=== PATIENT | male | born 1950 | race Caucasian/White ===

== ENCOUNTER 2020-10-30 21:22 | Emergency (ER) | payer MEDICARE ==
[~2020-10-30 21:22] MED LIST: ALLOPURINOL100 MG PO; ANTIVERT/2525 M1 PO; CRESTOR5 MG PO; LISINOPRIL10 MG PO; LISINOPRIL20 MG PO
[2020-10-30 22:02] LABS: BASO % 0.4 % (0.0-1.0); EOS # 0.2 10*3/uL (0.0-0.4); EOS % 2.7 % (1.0-4.0); HEMATOCRIT 46.3 % (42.0-52.0); LYMPH # 0.4 10*3/uL (1.3-4.4); LYMPH % 5.8 % (27.0-41.0); MEAN CELL VOLUME 89.7 fl (80.0-94.0); MEAN CORPUSCULAR HGB CONC 34.6 g/dl (33.0-37.0); MEAN PLATELET VOLUME 10.7 fl (9.6-12.3); MONO # 0.3 10*3/uL (0.1-1.0); MONO % 4.1 % (3.0-9.0); NEUT # 6.3 10*3/uL (2.3-7.9); NEUT % 85.6 % (47.0-73.0); PLATELET COUNT AUTOMATED 194 10*3/uL (130-400); RED BLOOD COUNT 5.16 10*6/uL (4.50-5.90); RED CELL DISTRI WIDTH 13.3 % (0-14.5); WHITE BLOOD COUNT 7.4 10*3/uL (4.8-10.8)
[2020-10-30 22:21] LABS: ALBUMIN 3.7 gm/dl (3.1-4.5); ALKALINE PHOSPHATASE 69 U/L (45-117); BUN 14 mg/dl (7-24); CHLORIDE 107 mmol/L (98-107); CREATININE 1.07 mg/dL (0.70-1.30); POTASSIUM 4.1 mmol/L (3.5-5.1); SGOT/AST 51 IU/L (3-35); SGPT/ALT 77 U/L (12-78); SODIUM 139 mmol/L (136-145); TOTAL PROTEIN 7.2 gm/dL (6.4-8.2)
[2020-10-30 22:22] LABS: TROPONIN I < 0.015 ng/ml (<0.045)
== END 2020-10-30 23:41 | disposition home or self-care (01) ==
LOC: ED 21:22
PROVIDERS: Physician Assistant
DX: B34.9 Viral infection, unspecified (principal); Z20.822 Contact with and (suspected) exposure to COVID-19; Z98.890 Other specified postprocedural states; Z79.899 Other long term (current) drug therapy

== ENCOUNTER 2022-03-19 15:10 | Emergency (ER) | payer MEDICARE ==
[~2022-03-19] VITALS: Wt 95.3 kg
[2022-03-19] MEDS ORDERED: MEDROL DOSEPAK4 MG PO (17:05)
[2022-03-19] MEDS ORDERED: NAPROSYN500 MG PO (17:05)
== END 2022-03-19 17:09 | disposition home or self-care (01) ==
LOC: ED 15:10
DX: M25.561 Pain in right knee (principal); Z79.899 Other long term (current) drug therapy; Z98.890 Other specified postprocedural states

== ENCOUNTER 2024-05-05 09:22 | Emergency (ER) | payer OTHER ==
[~2024-05-05] VITALS: Ht 175.2 cm; Wt 90.7 kg
[~2024-05-05 09:22] MED LIST changes: +MEDROL DOSEPAK4 MG PO; +NAPROSYN500 MG PO
[2024-05-05] MEDS ORDERED: LISINOPRIL-HCT1 EACH PO (09:55)
[2024-05-05 10:18] LABS: BILIRUBIN Negative (Negative); BLOOD Negative (Negative); CLARITY Clear (Clear); COLOR Yellow (Yellow); GLUCOSE Negative (Negative); KETONE Negative (Negative); LEUKO ESTERASE Negative (Negative); NITRITE Negative (Negative); UROBILINOGEN 0.2 E.U./dl (0.0-1.0)
[2024-05-05 10:35] LABS: BACTERIA 1+; CALCIUM OXALATE CRYSTALS Trace
[2024-05-05] MEDS ORDERED: FLOMAX0.4 MG PO (10:49)
== END 2024-05-05 10:52 | disposition home or self-care (01) ==
LOC: ED 09:22
PROVIDERS: Emergency Medicine
DX: R30.0 Dysuria (principal); N40.0 Benign prostatic hyperplasia without lower urinary tract symptoms; I10 Essential (primary) hypertension; Z98.890 Other specified postprocedural states; K21.9 Gastro-esophageal reflux disease without esophagitis; E78.00 Pure hypercholesterolemia, unspecified; M10.9 Gout, unspecified

== ENCOUNTER 2024-06-19 16:10 | Emergency (ER) | payer OTHER ==
[~2024-06-19] VITALS: Ht 175.2 cm; Wt 108.4 kg
[~2024-06-19 16:10] MED LIST changes: +FLOMAX0.4 MG PO; +LISINOPRIL-HCT1 EACH PO
[2024-06-19 16:37] LABS: BASO % 0.6 % (0.0-1.0); EOS # 0.1 10*3/uL (0.0-0.4); EOS % 2.6 % (1.0-4.0); HEMATOCRIT 49.3 % (42.0-52.0); MEAN CELL VOLUME 87.9 fl (80.0-94.0); MEAN CORPUSCULAR HGB 30.1 pg (27.0-31.0); MEAN CORPUSCULAR HGB CONC 34.3 g/dl (33.0-37.0); MEAN PLATELET VOLUME 10.4 fl (9.6-12.3); MONO # 0.5 10*3/uL (0.1-1.0); MONO % 8.4 % (3.0-9.0); NEUT # 3.4 10*3/uL (2.3-7.9); NEUT % 64.6 % (47.0-73.0); PLATELET COUNT AUTOMATED 231 10*3/uL (130-400); RED BLOOD COUNT 5.61 10*6/uL (4.50-5.90); WHITE BLOOD COUNT 5.3 10*3/uL (4.8-10.8)
[2024-06-19 16:59] LABS: BUN 16 mg/dl (9-23); CHLORIDE 102 mmol/L (98-107); POTASSIUM 4.2 mmol/L (3.4-5.1)
[2024-06-19 18:03] LABS: BILIRUBIN Negative (Negative); BLOOD Negative (Negative); CLARITY Clear (Clear); COLOR Yellow (Yellow); GLUCOSE Negative (Negative); KETONE Negative (Negative); LEUKO ESTERASE 1+ (Negative); NITRITE Negative (Negative); UROBILINOGEN 0.2 E.U./dl (0.0-1.0)
[2024-06-19 18:10] LABS: BACTERIA 1+; MUCOUS 1+; RBC 0-2 rbc/hpf (0-2); WBC 21-30 wbc/hpf (0-5)
[2024-06-19] MEDS ORDERED: CIPRO500 MG PO (18:15)
[2024-06-19] MEDS ORDERED: Ciprofloxacin Hydrochloride 500 MG TAB PO ONE (18:20)
== END 2024-06-19 18:44 | disposition home or self-care (01) ==
LOC: ED 16:10
PROVIDERS: Nurse Practitioner Family
DX: R33.9 Retention of urine, unspecified (principal); N39.0 Urinary tract infection, site not specified; E78.5 Hyperlipidemia, unspecified; I10 Essential (primary) hypertension; K21.9 Gastro-esophageal reflux disease without esophagitis; E78.00 Pure hypercholesterolemia, unspecified; M10.9 Gout, unspecified; E66.9 Obesity, unspecified; Z68.30 Body mass index [BMI] 30.0-30.9, adult; Z98.890 Other specified postprocedural states

== ENCOUNTER 2024-06-21 09:31 | Emergency (ER) | payer MEDICARE ==
[~2024-06-21] VITALS: Wt 108.4 kg
[~2024-06-21 09:31] MED LIST changes: +CIPRO500 MG PO
== END 2024-06-21 10:10 | disposition home or self-care (01) ==
LOC: ED 09:31
DX: Z46.6 Encounter for fitting and adjustment of urinary device (principal); I10 Essential (primary) hypertension; K21.9 Gastro-esophageal reflux disease without esophagitis; E78.00 Pure hypercholesterolemia, unspecified; M10.9 Gout, unspecified; Z98.890 Other specified postprocedural states

== ENCOUNTER 2025-01-22 12:01 | Emergency (ER) | payer MEDICARE ==
[~2025-01-22] VITALS: Ht 172.7 cm; Wt 99.8 kg
[2025-01-22] MEDS ORDERED: SODIUM CHLORIDE 0.9% 500 ML IV ONE (13:05)
[2025-01-22 13:25] LABS: BASO # 0.0 10*3/uL (0.0-0.1); BASO % 0.6 % (0.0-1.0); EOS # 0.2 10*3/uL (0.0-0.4); EOS % 3.6 % (1.0-4.0); MEAN CELL VOLUME 89.4 fl (80.0-94.0); MEAN CORPUSCULAR HGB 30.6 pg (27.0-31.0); MEAN PLATELET VOLUME 10.2 fl (9.6-12.3); MONO # 0.4 10*3/uL (0.1-1.0); MONO % 7.8 % (3.0-9.0); NEUT # 3.4 10*3/uL (2.3-7.9); NEUT % 68.3 % (47.0-73.0); NUCLEATED RED BLOOD CELL 0.0 % (0.0-0.0); NUCLEATED RED BLOOD CELL 0.0 10*3/uL (0.0-0.0); PLATELET COUNT AUTOMATED 191 10*3/uL (130-400); RED CELL DISTRI WIDTH 13.2 % (0-14.5)
[2025-01-22 13:47] LABS: BUN 11 mg/dl (9-23)
[2025-01-22] MEDS ORDERED: COLACE100 MG PO (14:14)
[2025-01-22] MEDS ORDERED: MIRALAX POWDER17 G1 PO (14:14)
== END 2025-01-22 14:19 | disposition home or self-care (01) ==
LOC: ED 12:01
PROVIDERS: Emergency Medicine
DX: K59.00 Constipation, unspecified (principal); I10 Essential (primary) hypertension; K21.9 Gastro-esophageal reflux disease without esophagitis; E78.00 Pure hypercholesterolemia, unspecified; M10.9 Gout, unspecified; Z98.890 Other specified postprocedural states